=== PATIENT | female | born 2000 | race Caucasian/White ===

== ENCOUNTER 2023-03-26 12:06 | Emergency (ER) | payer MEDICAID, SELFPAY ==
[2023-03-26 12:26] VITALS: BP 134/86; PULSE 114; RESP 18; TEMP 36.6; O2SAT 99; BMI 36.4
[2023-03-26 12:54] LABS: Basophils % 0.3 %; Eosinophils # 0.1 10^3/uL (0.0-0.8); Eosinophils % 1.2 %; Hematocrit 37.2 % (36-47); Lymphocytes # 1.8 10^3/uL (0.8-4.8); Lymphocytes % 20.8 %; Mean Corpuscular HGB Conc 33.6 g/dL (30-55); Mean Corpuscular Volume 89.4 fl (85-98); Mean Platelet Volume 11.4 fL (7.4-10.4); Monocytes # 0.4 10^3/uL (0.2-0.9); Monocytes % 4.2 %; Neutrophils # 6.31 10^3/uL (1.8-7.7); Neutrophils % 72.8 %; Nucleated Red Blood Cells % 0 %; Platelet Count 270 10^3/cmm (157-399); Red Blood Count 4.16 10^6/uL (3.85-5.65); Red Cell Distribution Width 12.3 % (12.1-15.1); White Blood Count 8.66 10^3/uL (3.29-11.43)
[2023-03-26 13:34] LABS: Alanine Aminotransferase 9 U/L (0-33); Albumin Level 3.9 g/dL (3.5-5.2); Alkaline Phosphatase 73 U/L (35-105); Anion Gap 16.7 (5-19); Aspartate Amino Transferase 11 U/L (0-32); Blood Urea Nitrogen 6 mg/dL (6-20); Calcium 9.4 mg/dL (8.5-10.5); Carbon Dioxide 22 mmol/L (22-29); Chloride 103 mmol/L (98-107); Globulin 2.6 g/dL (1.3-4.6); Glomerular Filtration Rate 152.9 mL/min (90-130); Glucose 120 mg/dL (65-115); Osmolality Calculated 285 mOsm/kg (285-295); Potassium 3.7 mmol/L (3.5-5.1); Sodium 138 mmol/L (136-145); Total Bilirubin 0.3 mg/dL (0.15-1.2); Total Protein 6.5 g/dL (6.6-8.7)
--- NOTE | 2023-03-26 14:58 | US_ITS ---
WS: [id number] ULTRASOUND EARLY TECHNIQUE: Transabdominal sonography of the pelvis was performed. Followed by transvaginal sonography to better evaluate the uterus and ovaries. CLINICAL INFORMATION: vaginal bleeding LMP: 12/29/2022 Beta hCG: Unknown. COMPARISON: None. FINDINGS: Cervix is long and closed measuring 4.4 cm. UTERUS AND GESTATIONAL SAC Intrauterine gestations: Single intrauterine gestation with cardiac activity. pole measures 7.2 cm Estimated gestational age: 13w2d [place] rump length (CRL): 7.2 cm. heart motion: 153 BPM. Subchorionic hemorrhage: None. OVARIES Right ovary: Normal. Left ovary: Suspected LEFT corpus luteum cyst measuring 1.8 x 1.7 x 1.6 cm FREE FLUID None. IMPRESSION: 1. Single live intrauterine with cardiac activity. 2. Cervix is long and closed measuring 4.4 cm. 3. Suspected corpus luteum cyst LEFT ovary. Normal RIGHT ovary 4. Normal adnexa. 5. Estimated gestational age; 13w2d with estimated date of delivery 09/29/2023
--- NOTE | 2023-03-26 15:05 | W.ED.PREGNAN ---
HPI - General: Chief complaint: Vaginal Bleeding Stated complaint: 3month , vaginal bleeding,back pains Time Seen by Provider: 03/26/23 14:22 Source: patient History of Present Illness: 22-year-old female presents emergency room complaining of vaginal bleeding. She noticed pink on the tissue after she wiped she also has a little bit of blood in the urine. Began this morning. She has not had any bleeding since no active bleeding no dysuria urgency or frequency. She currently is approximately 12 to 13 weeks. Did not have any pelvic pain or cramping. MD Complaint: vaginal bleeding Onset (ago): hour(s) Vaginal bleeding: light Associated symptoms: Deny abdominal pain or dysuria Review of Systems Const: Denies: fever(s) or chills Card: Denies: chest pain Resp: Denies: dyspnea GI: Denies: abdominal pain : Denies: dysuria, urinary frequency or urinary urgency Musc: Denies: neck pain or back pain Skin/Breast: Denies: rash Physical Exam Const: COMMON NORMALS: no acute distress GENERAL APPEARANCE: cooperative and comfortable ORIENTATION/CONSCIOUSNESS: Yes awake, Yes oriented to person, Yes oriented to place and Yes oriented to time HENMT: COMMON NORMALS: normocephalic, atraumatic and hearing grossly normal bilaterally HEAD & SCALP: normocephalic and atraumatic Resp: COMMON NORMALS: normal respiratory effort, No retractions, No use of accessory muscles and clear to auscultation bilaterally AUSCULTATION: clear to auscultation bilaterally Cardio: COMMON NORMALS: regular rate, regular rhythm and No murmurs present (Cardio) RATE: regular rate RHYTHM: regular rhythm GI: COMMON NORMALS: Soft to palpation and No hepatosplenomegaly present AUSCULTATION: Yes normoactive bowel sounds PALPATION: Yes Soft to palpation, No Tenderness to palpation present (GI), No Guarding due to palpation present (GI) and Yes No hepatosplenomegaly present Extremity: COMMON NORMALS: normal to inspection, capillary refill normal, no clubbing, cyanosis or edema, no calf tenderness and no pedal edema Neuro: SENSORIUM/ORIENTATION: Yes oriented to person, Yes oriented to place and Yes oriented to time Skin: COMMON NORMALS: no rashes or lesions noted GENERAL SKIN EXAM: no rashes or lesions noted Course Vital Signs: Vital signs: Vital Signs Temperature 97.9 F 03/26/23 12:26 Pulse Rate 114 H 03/26/23 12:26 Respiratory Rate 18 03/26/23 12:26 Blood Pressure 134/86 03/26/23 12:26 Pulse Oximetry 99 03/26/23 12:26 Oxygen Delivery Me thod Room Air 03/26/23 12:26 MDM - OB/Uterine Contractions Medical Decision Making Labs and imaging reviewed. No active bleeding. Ultrasound normal patient not having a pelvic discomfort. Discharge patient home have her follow-up with her primary care or senior mobile web developer return if she has further problems. heart tones normal. Medical Records I reviewed the patient's medical records. Lab Data I reviewed the patient's lab results. 03/26/23 12:40 03/26/23 12:40 Laboratory Results WBC 8.66 10^3/uL (3.29-11.43) 03/26/23 12:40 RBC 4.16 10^6/uL (3.85-5.65) 03/26/23 12:40 Hgb 12.50 g/dL (11.27-16.99) 03/26/23 12:40 Hct 37.2 % (36-47) 03/26/23 12:40 MCV 89.4 fl (85-98) 03/26/23 12:40 MCH 30.0 pg (27-33) 03/26/23 12:40 MCHC 33.6 g/dL (30-55) 03/26/23 12:40 RDW 12.3 % (12.1-15.1) 03/26/23 12:40 Plt Count 270 10^3/cmm (157-399) 03/26/23 12:40 MPV 11.4 fL (7.4-10.4) H 03/26/23 12:40 Neut % (Auto) 72.8 % 03/26/23 12:40 Lymph % (Auto) 20.8 % 03/26/23 12:40 Kaufman % (Auto) 4.2 % 03/26/23 12:40 Eos % (Auto) 1.2 % 03/26/23 12:40 Baso % (Auto) 0.3 % 03/26/23 12:40 Neut # (Auto) 6.31 10^3/uL (1.8-7.7) 03/26/23 12:40 Lymph # (Auto) 1.8 10^3/uL (0.8-4.8) 03/26/23 12:40 Kaufman # (Auto) 0.4 10^3/uL (0.2-0.9) 03/26/23 12:40 Eos # (Auto) 0.1 10^3/uL (0.0-0.8) 03/26/23 12:40 Baso # (Auto) 0.0 10^3/uL (0.0-0.1) 03/26/23 12:40 Nucleated RBC % (auto) 0 % 03/26/23 12:40 Nucleated RBCs # 0.0 /100WBC 03/26/23 12:40 Sodium 138 mmol/L (136-145) 03/26/23 12:40 Potassium 3.7 mmol/L (3.5-5.1) 03/26/23 12:40 Chloride 103 mmol/L (98-107) 03/26/23 12:40 Carbon Dioxide 22 mmol/L (22-29) 03/26/23 12:40 Anion Gap 16.7 (5-19) 03/26/23 12:40 BUN 6 mg/dL (6-20) 03/26/23 12:40 Creatinine 0.5 mg/dL (0.5-0.9) 03/26/23 12:40 GFR Calculation 152.9 mL/min (90-130) H 03/26/23 12:40 Glucose 120 mg/dL (65-115) H 03/26/23 12:40 Calculated Osmolality 285 mOsm/kg (285-295) 03/26/23 12:40 Calcium 9.4 mg/dL (8.5-10.5) 03/26/23 12:40 Total Bilirubin 0.3 mg/dL (0.15-1.2) 03/26/23 12:40 AST 11 U/L (0-32) 03/26/23 12:40 ALT 9 U/L (0-33) 03/26/23 12:40 Alkaline Phosphatase 73 U/L (35-105) 03/26/23 12:40 Total Protein 6.5 g/dL (6.6-8.7) L 03/26/23 12:40 Albumin 3.9 g/dL (3.5-5.2) 03/26/23 12:40 Globulin 2.6 g/dL (1.3-4.6) 03/26/23 12:40 Ser , Semi-Qnt 55789.00 mIU/mL 03/26/23 12:40 Urine Color Yellow (Yellow) 03/26/23 14:36 Urine Appearance Sl hazy (CLEAR) A 03/26/23 14:36 Urine pH 7 (5-7) 03/26/23 14:36 Ur Specific [place] 1.015 (1.005-1.030) 03/26/23 14:36 Urine Protein Neg (Negative) 03/26/23 14:36 Urine Glucose (UA) Norm (Normal) 03/26/23 14:36 Urine Ketones 1+ (Negative) H 03/26/23 14:36 Urine Blood Neg (Negative) 03/26/23 14:36 Urine Nitrate Negative (Negative) 03/26/23 14:36 Urine Bilirubin Neg (Negative) 03/26/23 14:36 Urine Urobilinogen 1 mg/dL (Negative) H 03/26/23 14:36 Ur Leukocyte Esterase Negative (Negative) 03/26/23 14:36 Urine RBC 0-4 /hpf (0-2) H 03/26/23 14:36 Urine WBC 0-4 /hpf (0-5) H 03/26/23 14:36 Ur Squamous Epith Cells 0-4 /hpf (0-5) H 03/26/23 14:36 Amorphous Sediment 1+ /hpf 03/26/23 14:36 Urine Bacteria Trace /hpf (NONE) 03/26/23 14:36 Urine Mucus 1+ /hpf 03/26/23 14:36 C.trachomatis RNA (TMA) Not detected (NOT DETECTED) 03/26/23 16:05 Chlamydia/GC Comment See note 03/26/23 16:05 N.gonorrhoeae RNA (TMA) Not detected (NOT DETECTED) 03/26/23 16:05 All radiology interpretation(s) finalized by discharge Discharge Plan Discharge Patient Disposition: Home Clinical Impression: Vaginal bleeding, Second trimester Condition: Stable Prescriptions: No Action Lamictal 200 mg Tablet 200 mg PO QAM Gummies 400 mcg-35 mg- 25 mg-5 mg Tablet,Chewable 2 tab PO QAM Discharge Orders: Discharge ED (Routine); Ordered 03/26/23 Ordered By: Joseph Dutton Discharge Diet: Usual diet Discharge Activity: Increase activity as tolerated Patient Instructions: Opioid Safety, Pain Management Activity Restrictions/Additional Instructions: Thank you for choosing [facility] for your healthcare needs today. Please realize this is an emergency room and that we are providing you with a medical screening exam and this may not be complete and all inclusive of all the testing and or work up that you may need to determine your ailment or severity of your illness. It is very important that you follow up as instructed or that you return to the Emergency Department should you have concerns or if your condition changes or worsens in any way. You were seen today with a complaint of vaginal bleeding. On exam there is no evidence of acute vaginal bleeding. From your report of the first trimester ultrasound the second trimester ultrasound confirms the dating and did not show any evidence of subchorionic hemorrhage or any other complications. We did do cultures during the pelvic exam those of the resulted in a few days and you will be contacted if there are any positives. Urinalysis was normal. Case management will help make arrangements for you to establish with a senior mobile web developer in the area. Coding Level of Care Code ED Emergency Management Program Specialist for Alonso Trevino
[2023-03-26 15:15] LABS: Add Urine Microscopic? YES; Bilirubin Urine Neg (Negative); Blood Urine Neg (Negative); Glucose Urine UA Norm (Normal); Ketones Urine 1+ (Negative); Leukocyte Esterase Urine Negative (Negative); Nitrate Urine Negative (Negative); Protein Urine Neg (Negative); Specific Gravity, Urine 1.015 (1.005-1.030); Urine Appearance SL Hazy (CLEAR); Urine Color Yellow (Yellow); Urobilinogen Urine 1 mg/dL (Negative); pH Urine 7 (5-7)
[2023-03-26 15:20] LABS: Bacteria Urine TRACE /hpf; Mucus Urine 1+ /hpf; RBC Urine 0-4 /hpf (0-2); Squamous Epithelial Cell Urine 0-4 /hpf (0-5); WBC Urine 0-4 /hpf (0-5)
[2023-03-26 15:21] LABS: Add Urine Culture? No; Amorphous Sediment Urine 1+ /hpf
[2023-03-27 19:25] LABS: Chlamydia Trachomatis RNA TMA NOT DETECTED (NOT DETECTED); Neisseria Gonorrhoeae RNA, TMA NOT DETECTED (NOT DETECTED)
== END 2023-03-26 17:40 | disposition home or self-care (01) ==
PROVIDERS: Emergency Medicine; Emergency Provider Family Medicine
DX: O46.91 Antepartum hemorrhage, unspecified, first trimester (principal); Z3A.13 13 weeks gestation of pregnancy
CPT/HCPCS: 36415; 76801; 80053; 81001; 84702; 85025; 87210; 87491; 87591; 99284

== ENCOUNTER → 2023-04-16 14:04 | Outpatient (BNVA) | payer MEDICAID, SELFPAY | PROVIDERS: Visit Provider Nurse Practitioner Women's Health | DX: Z34.90 Encounter for supervision of normal pregnancy, unspecified, unspecified trimester (principal) | CPT/HCPCS: 80307; 81000; 84439; 84443; 84481; 85025; 86592; 86762; 86803; 86850; 86900; 87086; 87340; 87491; 87591; 87806; 88175 ==

== ENCOUNTER → 2023-05-14 14:23 | Outpatient (BNVA) | payer MEDICAID, SELFPAY | PROVIDERS: Visit Provider Obstetrics & Gynecology | DX: Z34.90 Encounter for supervision of normal pregnancy, unspecified, unspecified trimester (principal); Z3A.00 Weeks of gestation of pregnancy not specified | CPT/HCPCS: 76805 ==

== ENCOUNTER → 2023-05-29 14:53 | Outpatient (BNVA) | payer MEDICAID, SELFPAY | PROVIDERS: Visit Provider Obstetrics & Gynecology | DX: Z34.90 Encounter for supervision of normal pregnancy, unspecified, unspecified trimester (principal); Z3A.15 15 weeks gestation of pregnancy | CPT/HCPCS: 81000 ==

== ENCOUNTER → 2023-06-26 09:57 | Outpatient (BNVA) | payer MEDICAID, SELFPAY | PROVIDERS: Visit Provider Obstetrics & Gynecology | DX: Z34.92 Encounter for supervision of normal pregnancy, unspecified, second trimester (principal); Z3A.15 15 weeks gestation of pregnancy; Z98.891 History of uterine scar from previous surgery | CPT/HCPCS: 81000 ==

== ENCOUNTER → 2023-07-22 09:43 | Outpatient (BNVA) | payer MEDICAID, SELFPAY | PROVIDERS: Visit Provider Obstetrics & Gynecology | DX: Z34.92 Encounter for supervision of normal pregnancy, unspecified, second trimester (principal); Z3A.29 29 weeks gestation of pregnancy | CPT/HCPCS: 81000 ==

== ENCOUNTER 2023-07-28 02:12 | Outpatient (CLI) | payer MEDICAID, SELFPAY ==
[2023-07-28] VITALS (7 sets, daily range): BP systolic 103–128; BP diastolic 55–71; PULSE 90–108; RESP 16; TEMP 36.6; BMI 38.1
[2023-07-28 03:13] LABS: Add Urine Culture? Yes; Bacteria Urine 2+ /hpf; Bilirubin Urine Neg (Negative); Blood Urine Neg (Negative); Glucose Urine UA Norm (Normal); Ketones Urine Negative (Negative); Leukocyte Esterase Urine 2+ (Negative); Mucus Urine TRACE /hpf; Nitrate Urine Negative (Negative); Protein Urine Neg (Negative); RBC Urine 0-4 /hpf (0-2); Specific Gravity, Urine 1.005 (1.005-1.030); Urine Appearance Clear (CLEAR); Urine Color Yellow (Yellow); Urobilinogen Urine Neg (Negative); WBC Urine 25-40 /hpf (0-5); pH Urine 7 (5-7)
[2023-07-28] MEDS: oxyCODONE-APAP 5-325 mg Tablet 2 TAB PO (03:38)
[2023-07-28] MEDS: ceFAZolin 1,000 MG in sodium chloride 0.9% (plus) 50 ML 100 MG IV (03:39)
[2023-07-28] MEDS: lactated ringers 1,000 ML 125 ML IV (03:39)
== END 2023-07-28 05:16 | disposition home or self-care (01) ==
LOC: OPOB 02:13 → OBGYN 02:13
PROVIDERS: Visit Provider Obstetrics & Gynecology
DX: O26.899 Other specified pregnancy related conditions, unspecified trimester (principal); Z3A.00 Weeks of gestation of pregnancy not specified; M54.9 Dorsalgia, unspecified
CPT/HCPCS: 36415; 59025; 81001; 87086; 99211; J0690; J7120

== ENCOUNTER → 2023-07-29 08:27 | Outpatient (BNVA) | payer MEDICAID, SELFPAY | PROVIDERS: Visit Provider Obstetrics & Gynecology | DX: Z34.02 Encounter for supervision of normal first pregnancy, second trimester (principal); Z3A.15 15 weeks gestation of pregnancy | CPT/HCPCS: 82950; 84315 ==

== ENCOUNTER → 2023-08-12 08:10 | Outpatient (BNVA) | payer MEDICAID, SELFPAY | PROVIDERS: Visit Provider Obstetrics & Gynecology | DX: Z34.93 Encounter for supervision of normal pregnancy, unspecified, third trimester (principal); Z3A.32 32 weeks gestation of pregnancy | CPT/HCPCS: 81000 ==

== ENCOUNTER → 2023-08-26 14:43 | Outpatient (BNVA) | payer MEDICAID, SELFPAY | PROVIDERS: Visit Provider Nurse Practitioner Women's Health | DX: Z34.93 Encounter for supervision of normal pregnancy, unspecified, third trimester (principal); Z3A.34 34 weeks gestation of pregnancy; R87.619 Unspecified abnormal cytological findings in specimens from cervix uteri; K82.9 Disease of gallbladder, unspecified | CPT/HCPCS: 81000; 87086 ==

== ENCOUNTER 2023-08-29 10:11 | Outpatient (CLI) | payer MEDICAID, SELFPAY ==
--- NOTE | 2023-08-29 10:15 | USR_ITS ---
PROCEDURE INFORMATION: Exam: US Abdomen, Limited; Right Upper Quadrant Exam date and time: 08/29/2023 10:25 AM Age: 22 years old Clinical indication: Condition or disease; Gallbladder condition; Other: Disease of gallbladder, unspecified; Additional info: K82.9 - disease of gallbladder, unspecified TECHNIQUE: Imaging protocol: Real time ultrasound of the abdomen with image documentation. Limited exam focused on the right upper quadrant. COMPARISON: US OB >= 14 weeks fetus [id number] 14/05/2023 14:32 FINDINGS: Liver: Normal. No masses. Gallbladder: Normal. No gallstones. There is no gallbladder wall thickening. Biliary ducts: Normal. No stones. No dilation (3 mm). Pancreas: Visualized pancreas is unremarkable. Kidneys: There is moderate bilateral hydronephrosis. This hydronephrosis is potentially a normal physiologic finding in this female. US/US gall bladder [id number] IMPRESSION: 1. Moderate bilateral hydronephrosis, potentially a normal physiologic finding in this female 2. No sonographic evidence of hepatobiliary disease
== END 2023-08-29 10:12 | disposition home or self-care (01) ==
LOC: RAD 10:11
PROVIDERS: Visit Provider Nurse Practitioner Women's Health
DX: O26.613 Liver and biliary tract disorders in pregnancy, third trimester (principal); R73.09 Other abnormal glucose
CPT/HCPCS: 76705; 82951; 82952

== ENCOUNTER → 2023-09-09 08:20 | Outpatient (BNVA) | payer MEDICAID, SELFPAY | PROVIDERS: Visit Provider Obstetrics & Gynecology | DX: Z34.90 Encounter for supervision of normal pregnancy, unspecified, unspecified trimester (principal); Z3A.00 Weeks of gestation of pregnancy not specified | CPT/HCPCS: 81000; 87081 ==

== ENCOUNTER → 2023-09-16 08:20 | Outpatient (BNVA) | payer MEDICAID, SELFPAY | PROVIDERS: Visit Provider Obstetrics & Gynecology | DX: Z34.90 Encounter for supervision of normal pregnancy, unspecified, unspecified trimester (principal) | CPT/HCPCS: 81000 ==

== ENCOUNTER → 2023-09-24 09:20 | Outpatient (BNVA) | payer MEDICAID, SELFPAY | PROVIDERS: Visit Provider Obstetrics & Gynecology | DX: Z34.90 Encounter for supervision of normal pregnancy, unspecified, unspecified trimester (principal); Z3A.00 Weeks of gestation of pregnancy not specified | CPT/HCPCS: 81000 ==

== ENCOUNTER 2023-09-27 11:10 | Inpatient (IN) | payer MEDICAID, SELFPAY ==
[2023-09-27] VITALS (29 sets, daily range): BP systolic 106–151; BP diastolic 55–81; PULSE 55–87; RESP 16–17; TEMP 36.7; O2SAT 98–99; BMI 39.4
--- NOTE | 2023-09-27 08:00 | PM.OBGYHP ---
Providers/Chief Complaint Admitting Physician: Al Barrett MD Primary ARTILLERY SPECIALIST: Al Barrett MD Chief Complaint: epi consult HPI ARTILLERY SPECIALIST History of Present Illness 22 y.o. EDC October 04, 2023 At 39 w 0 d No complications No c/o + active movements h/o x one now admitted for repeat for delivery Medications/Allergies Home Medications Medication Instructions Recorded Confirmed Last Taken Type docosahexaenoic acid 200 mg 200 mg PO DAILY 08/26/23 09/24/23 Unknown History capsule ( DHA) Allergies Allergy/AdvReac Type Severity Reaction Status Date / Time escitalopram [From Lexapro] Allergy suicidal Verified 09/24/23 15:57 ideation PFSH ARTILLERY SPECIALIST PFSH: Family History Grandmother Breast cancer Diabetes Denies family history of Colon cancer Ovarian cancer Heart disease Hypertension Uterine cancer Thyroid disease Stroke History History History 2 Term 1 0 Miscarriages/Ectopic 0 Living Children 1 Care TEZ Calculator Estimated Delivery Date Method Current WG Current Estimate 10/04/23 LMP (Certain) 39w 0d Physical Exam Narrative: Weight 237 lbs; 5?5? Comfortable, awake, alert Lungs: clear Cor: RRR Abd: nontender FH 38 cm FHTs normal Ext: no edema Results Labs OB ([facility]): Blood Type O Positive 04/16/23 Antibody Screen Negative 04/16/23 Hct 34.0 % (36-47) L 04/16/23 Hgb 11.50 g/dL (11.27-16.99) 04/16/23 Rho(D) Type Rh positive 04/16/23 Plt Count 271 10^3/cmm (157-399) 04/16/23 Hep Bs Antigen Non-reactive (Nonreactive) 04/16/23 Hepatitis C Antibody Non-reactive (Nonreactive) 04/16/23 Rubella IgG Antibody 36.9 IU/mL (0.0-10.0) H 04/16/23 RPR Nonreactive (Nonreactive) 04/16/23 HIV 1&2 Ab & HIV 1 Ag Non-reactive (Non-Reactiv) 04/16/23 TSH 1.34 uIU/mL (0.27-4.20) 04/16/23 Free T4 0.97 ng/dL (0.82-1.77) 04/16/23 C.trachomatis RNA (TMA) Not detected (NOT DETECTED) 04/16/23 N.gonorrhoeae RNA (TMA) Not detected (NOT DETECTED) 04/16/23 Chlamydia/GC Comment See note 04/16/23 Cystic Fibrosis Screen Negative 04/16/23 Glucose 1 Hr 50 gm 148 mg/dL (85-140) H 07/29/23 Gest Glucose Tolerance mg/dL 08/27/23 Ser , Semi-Qnt 13930.00 mIU/mL 03/26/23 Urine Opiates Screen Negative ng/mL (Negative) 04/16/23 Ur Barbiturates Screen Negative ng/mL (Negative) 04/16/23 Ur Phencyclidine Scrn Negative ng/mL (Negative) 04/16/23 Ur Amphetamines Screen Negative ng/mL (Negative) 04/16/23 U Benzodiazepines Scrn Negative ng/mL (Negative) 04/16/23 Urine Cocaine Screen Negative ng/mL (Negative) 04/16/23 U Marijuana (THC) Screen Negative ng/mL (Negative) 04/16/23 Micro Urine Specimen 08/26/23 Pap Smear Interpret See note A 04/16/23 A&P Assessment and plan (1) : 39 w 0 d Qualifiers: Weeks of gestation: 15 weeks Qualified Code(s): Z3A.15 - 15 weeks gestation of (2) History of delivery: h/o x one patient wants RCS for delivery does not want trial of labor now admitted for repeat c-s procedure and risks explained to patient risks include, but not limited to, infection; bleeding; injury to internal organs, such as bladder, bowel; anesthesia; blood transfusions patient understands and wants to proceed Attestations Medical Necessity Statement*: patient at 39 w 0 d; admitted for repeat Coding Level of Care Code Acute Code for Chg Fwd Diagnoses 15 weeks gestation of Z3A.15 Weeks of gestation: 15 weeks History of delivery Z98.891 Time Spent (min) 30
[2023-09-27 12:04] LABS: Basophils % 0.5 %; Eosinophils % 0.6 %; Hematocrit 32.4 % (36-47); Lymphocytes # 1.7 10^3/uL (0.8-4.8); Lymphocytes % 26.1 %; Mean Corpuscular HGB Conc 32.1 g/dL (30-55); Mean Corpuscular Hemoglobin 28.6 pg (27-33); Mean Platelet Volume 13.9 fL (7.4-10.4); Monocytes # 0.4 10^3/uL (0.2-0.9); Monocytes % 6.2 %; Neutrophils # 4.21 10^3/uL (1.8-7.7); Neutrophils % 65.5 %; Nucleated Red Blood Cells % 0 %; Platelet Count 134 10^3/cmm (157-399); Red Blood Count 3.64 10^6/uL (3.85-5.65); Red Cell Distribution Width 13.2 % (12.1-15.1); White Blood Count 6.43 10^3/uL (3.29-11.43)
[2023-09-27] MEDS: lactated ringers 1,000 ML 999 ML IV (12:04)
--- NOTE | 2023-09-27 12:43 | W.PM.OPSUD ---
Surgery/Procedure H&P Update DATE OF PROCEDURE: September 27, 2023 DATE H&P PERFORMED: 09/27/23 H&P UPDATE INFORMATION: I have reviewed H&P completed within last 30 days, I have examined patient prior to procedure and No changes to prior documentation PRIMARY INDICATION FOR PROCEDURE: repeat PLANNED PROCEDURE: Operation Date: 09/27/23 13:20 Proposed Procedures p Section Repeat 32888, O34.219(Not Applicable) - Al Barrett MD
[2023-09-27] MEDS: citric acid-sodium citrate 30 mL UDC PO (12:54)
[2023-09-27] MEDS: metoclopramide 5 mg/mL SDV 2 mL 10 MG IVP (12:54)
[2023-09-27] MEDS: famotidine 20 mg/2 mL INJ IVP (12:54)
[2023-09-27] MEDS: methylergonovine 0.2 mg/mL INJ 1 mL 0.200000000000000011 MG IM (13:44)
--- NOTE | 2023-09-27 15:10 | P.OP_ITS ---
Operative Report Date of procedure: September 27, 2023 Pre-op diagnosis: 39 ? weeks gestation Previous x one For repeat Post-op diagnosis: same Post-op findings: Vigorous female infant Normal placenta and cord Normal uterus, tubes, and ovaries Procedure done: Repeat low-transverse Implants: none Specimens removed/disposition: placenta, discarded Surgeon: Al Barrett MD Anesthesia: Spinal Estimated blood loss (mL): 1,000 Complications: none Findings: Vigorous female Normal placenta and cord Normal uterus, tubes, and ovaries Condition: stable Disposition: floor Brief History: 22 y.o. with previous now scheduled for repeat for delivery Procedure: Informed consent signed. Patient was taken to the operating room, placed supine in the left lateral tilt position. Spinal anesthesia and a Johnston catheter were already placed. The abdomen was prepped and draped in the usual sterile fashion. A Pfannenstiel incision was made over an old scar and carried down through skin and subcutaneous tissue and fascia. The fascial incision was extended laterally with Molina scissors. The fascia was from the underlying rectus muscles. The rectus muscles were split in the midline. The peritoneum was entered bluntly avoiding underlying organs. A bladder flap was created. A low transverse uterine incision was made and extended laterally bluntly avoiding the uterine vessels. Clear amniotic fluid was seen. The baby was delivered in cephalic presentation atraumatically. The baby was suctioned. The cord was clamped and cut and the baby was handed to an awaiting chief dispatcher service. Cord blood was obtained. The placenta was manually removed intact. The uterus was exteriorized. The uterine cavity was bluntly curetted with wet laps. The uterine incision was then closed with a continuous interlocking stitch of O chromic. Adequate hemostasis was seen. No bleeding was seen. The uterine incision was again inspected and found to have good hemostasis. The uterus was returned into the abdominal cavity. The fascia was then closed with a continuous stitch of O-Vicryl. Additional interrupted stitches of O-Vicryl were used for fascial closure. The subcutaneous tissue was irrigated and inspected for hemostasis. The skin was then reapproximated using Insorb evaristo. Postoperative condition stable Disposition to recovery room Estimated blood loss 1000 cc, no replacement Sponge, needle, and instrument counts were correct x two There were no complications
[2023-09-27] MEDS: ketorolac 30 mg/mL INJ IVP (19:59)
[2023-09-27] MEDS: dextrose 5%-lactated ringers 1,000 ML 125 ML IV (20:00)
[2023-09-27] MEDS: docusate sodium 100 mg Capsule PO (20:02)
[2023-09-28 01:45] VITALS: BP 122/59; PULSE 75
[2023-09-28 01:57] LABS: Hematocrit 30.9 % (36-47); Mean Corpuscular HGB Conc 32.4 g/dL (30-55); Mean Corpuscular Hemoglobin 28.7 pg (27-33); Mean Corpuscular Volume 88.5 fl (85-98); Mean Platelet Volume 14.1 fL (7.4-10.4); Platelet Count 142 10^3/cmm (157-399); Red Blood Count 3.49 10^6/uL (3.85-5.65); Red Cell Distribution Width 13.2 % (12.1-15.1); White Blood Count 10.22 10^3/uL (3.29-11.43)
[2023-09-28] MEDS: ketorolac 30 mg/mL INJ IVP ×2 (02:50→08:13)
[2023-09-28 04:14] VITALS: BP 114/61; PULSE 77
[2023-09-28] MEDS: dextrose 5%-lactated ringers 1,000 ML 125 ML IV (05:42)
[2023-09-28] MEDS: PRENATAL VIT NO.130/IRON/FOLIC 1 EACH TABLET PO (08:13)
[2023-09-28] MEDS: ferrous sulfate EC 325 mg Tablet PO (08:13)
[2023-09-28] MEDS: docusate sodium 100 mg Capsule PO ×2 (08:13→21:11)
[2023-09-28 09:24] VITALS: BP 112/68; PULSE 73; RESP 17; TEMP 36.7
--- NOTE | 2023-09-28 12:35 | P.PN_ITS ---
MOBILE ENGINEER Subjective 2 Subjective: Interval history: c/o mild incisional pain, relieved with pain meds no bleeding, nausea, vomiting tolerating PO well caring for infant without any difficulties Labor: Amniotic Membrane Status: Intact Monitor Mode: External C ontraction Pattern: Irregular Vitals/I&O/Wt Last Vital Signs Temp 98.1 F 09/28/23 09:24 Pulse 84 09/28/23 21:13 Resp 17 09/28/23 09:24 BP 122/68 09/28/23 21:13 Pulse Ox 98 09/27/23 14:55 O2 Del Method Room Air 09/28/23 09:24 09/28/23 09/28/23 09/29/23 14:59 22:59 06:59 Output Total 550 / 550 Balance -550 / -550 Weight last 48 hrs Weight 237 lb Physical Exam 2 Narrative: afebrile, VS normal comfortable, awake, alert Lungs: clear Cor: RRR Abd: soft, nondistended, nontender fundus firm wound clean and dry Ext: no edema Urinary Catheter Management: Johnston: Cath Placed During This Visit: yes, but has since been removed by the nurse Reason for Continuing Indwelling Catheter: Decision to DC Catheter Urinary Catheter Date of Insertion: 09/27/23 Urinary Catheter Time of Insertion: 13:10 Date Urinary Catheter Removed: 09/28/23 Time Urinary Catheter Discontinued: 08:30 Data 09/28/23 01:50 A&P Assessment and plan (1) S/P repeat low transverse : POD #1 doing well continue postop care ambulate Attestations 2 Medical Necessity Statement*: patient s/p repeat , for postop care Coding Level of Care Code Acute Code for Chg Fwd Diagnoses S/P repeat low transverse Z98.891 Time Spent (min) 20
[2023-09-28] MEDS: HYDROcodone-acetaminophen 5-325 mg Tablet PO ×3 (13:19→21:11)
[2023-09-28] MEDS: simethicone 80 mg Chew PO (15:39)
[2023-09-28 17:16] VITALS: BP 117/68; PULSE 77
[2023-09-28] MEDS: ibuprofen 800 mg tablet PO (21:11)
[2023-09-28 21:13] VITALS: BP 122/68; PULSE 84; RESP 17; TEMP 36.7
[2023-09-29] MEDS: HYDROcodone-acetaminophen 5-325 mg Tablet PO ×3 (01:22→10:23)
[2023-09-29 03:49] VITALS: BP 121/67; PULSE 80
--- NOTE | 2023-09-29 09:10 | P.PN_ITS ---
PHYSICS FACULTY MEMBER Subjective 2 Subjective: Interval history: no c/o eating, voiding, ambulating well no pain, bleeding wants to go home without any difficulties Labor: Amniotic Membrane Status: Intact Monitor Mode: External C ontraction Pattern: Irregular Vitals/I&O/Wt Last Vital Signs Temp 98.0 F 09/29/23 10:11 Pulse 80 09/29/23 10:11 Resp 17 09/28/23 21:13 BP 118/68 09/29/23 10:11 Pulse Ox 98 09/27/23 14:55 O2 Del Method Room Air 09/28/23 09:24 Physical Exam 2 Narrative: comfortable afebrile, VS normal Abd: soft, nontender wound clean and dry Ext: normal Urinary Catheter Management: Johnston: Cath Placed During This Visit: yes, but has since been removed by the nurse Reason for Continuing Indwelling Catheter: Decision to DC Catheter Urinary Catheter Date of Insertion: 09/27/23 Urinary Catheter Time of Insertion: 13:10 Date Urinary Catheter Removed: 09/28/23 Time Urinary Catheter Discontinued: 08:30 Data 09/28/23 01:50 A&P Assessment and plan (1) S/P repeat low transverse : POD #2 RCS doing well discharge home today instructions and precautions given call/return if fever, chills, nausea, vomiting, headaches, abdominal pain, bleeding, inability to void, swelling, leg pain; feelings of depression or mood changes; wound redness, swelling, or discharge f/u in 1 week or PRN Attestations 2 Medical Necessity Statement*: patient s/p repeat , plan to discharge to home today Coding Level of Care Code Acute Code for Chg Fwd Diagnoses S/P repeat low transverse Z98.891 Time Spent (min) 20
--- NOTE | 2023-09-29 09:20 | P.DS_ITS ---
Discharge Providers ENTRY LEVEL INSTALLATION TECHNICIAN Date of Admission: 09/27/23 11:10 Date of Discharge: 09/29/23 Attending Provider at Admission: lA Barrett MD Attending Provider at Discharge: Al Barrett MD Consults: none Primary ENTRY LEVEL INSTALLATION TECHNICIAN: Al Barrett MD Diagnoses at Discharge Discharge Diagnosis (1) S/P repeat low transverse : Details from hospital stay: patient admitted for repeat at term underwent repeat low-transverse without any complications did well postoperatively patient was discharged to home on the second postoperative day Status: Acute Reason for Visit Reason for Visit: epi consult Brief History: 22 y.o. h/o previous admitted at 39 w 4 d for repeat Hospital Course Hospital Course patient admitted for repeat at term underwent repeat low-transverse without any complications did well postoperatively patient was discharged to home on the second postoperative day Information Peripartum Data: Delivery Method: complications: none Physical Exam Narrative: comfortable afebrile, VS normal Abd: soft, nontender wound clean and dry Ext: normal Urinary Catheter Management: Johnston: Cath Placed During This Visit: yes, but has since been removed by the nurse Reason for Continuing Indwelling Catheter: Decision to DC Catheter Urinary Catheter Date of Insertion: 09/27/23 Urinary Catheter Time of Insertion: 13:10 Date Urinary Catheter Removed: 09/28/23 Time Urinary Catheter Discontinued: 08:30 History History History 2 Term 1 0 Miscarriages/Ectopic 0 Living Children 1 Discharge Data Studies Completed and Pending Laboratory Results WBC 10.22 10^3/uL (3.29-11.43) 09/28/23 01:50 RBC 3.49 10^6/uL (3.85-5.65) L 09/28/23 01:50 Hgb 10.00 g/dL (11.27-16.99) L 09/28/23 01:50 Hct 30.9 % (36-47) L 09/28/23 01:50 MCV 88.5 fl (85-98) 09/28/23 01:50 MCH 28.7 pg (27-33) 09/28/23 01:50 MCHC 32.4 g/dL (30-55) 09/28/23 01:50 RDW 13.2 % (12.1-15.1) 09/28/23 01:50 Plt Count 142 10^3/cmm (157-399) L 09/28/23 01:50 MPV 14.1 fL (7.4-10.4) H 09/28/23 01:50 Neut % (Auto) 65.5 % 09/27/23 11:30 Lymph % (Auto) 26.1 % 09/27/23 11:30 [place] % (Auto) 6.2 % 09/27/23 11:30 Eos % (Auto) 0.6 % 09/27/23 11:30 Baso % (Auto) 0.5 % 09/27/23 11:30 Neut # (Auto) 4.21 10^3/uL (1.8-7.7) 09/27/23 11:30 Lymph # (Auto) 1.7 10^3/uL (0.8-4.8) 09/27/23 11:30 [place] # (Auto) 0.4 10^3/uL (0.2-0.9) 09/27/23 11:30 Eos # (Auto) 0.0 10^3/uL (0.0-0.8) 09/27/23 11:30 Baso # (Auto) 0.0 10^3/uL (0.0-0.1) 09/27/23 11:30 Nucleated RBC % (auto) 0 % 09/27/23 11:30 Nucleated RBCs # 0.0 /100WBC 09/27/23 11:30 Blood Type O Positive 09/27/23 11:30 Rho(D) Type Rh positive 09/27/23 11:30 Antibody Screen Negative 09/27/23 11:30 Procedures Performed repeat low-transverse Vitals Last Vital Signs Temp 98.0 F 09/29/23 10:11 Pulse 80 09/29/23 10:11 Resp 17 09/28/23 21:13 BP 118/68 09/29/23 10:11 Pulse Ox 98 09/27/23 14:55 O2 Del Method Room Air 09/28/23 09:24 Results Labs OB ([facility]): Blood Type O Positive 09/27/23 Antibody Screen Negative 09/27/23 Hct 30.9 % (36-47) L 09/28/23 Hgb 10.00 g/dL (11.27-16.99) L 09/28/23 Rho(D) Type Rh positive 09/27/23 Plt Count 142 10^3/cmm (157-399) L 09/28/23 Hep Bs Antigen Non-reactive (Nonreactive) 04/16/23 Hepatitis C Antibody Non-reactive (Nonreactive) 04/16/23 Rubella IgG Antibody 36.9 IU/mL (0.0-10.0) H 04/16/23 RPR Nonreactive (Nonreactive) 04/16/23 HIV 1&2 Ab & HIV 1 Ag Non-reactive (Non-Reactiv) 04/16/23 TSH 1.34 uIU/mL (0.27-4.20) 04/16/23 Free T4 0.97 ng/dL (0.82-1.77) 04/16/23 C.trachomatis RNA (TMA) Not detected (NOT DETECTED) N.gonorrhoeae RNA (TMA) Not detected (NOT DETECTED) Chlamydia/GC Comment See note 04/16/23 Cystic Fibrosis Screen Negative 04/16/23 Glucose 1 Hr 50 gm 148 mg/dL (85-140) H 07/29/23 Gest Glucose Tolerance mg/dL 08/27/23 Ser , Semi-Qnt 91889.00 mIU/mL 03/26/23 Urine Opiates Screen Negative ng/mL (Negative) 04/16/23 Ur Barbiturates Screen Negative ng/mL (Negative) 04/16/23 Ur Phencyclidine Scrn Negative ng/mL (Negative) 04/16/23 Ur Amphetamines Screen Negative ng/mL (Negative) 04/16/23 U Benzodiazepines Scrn Negative ng/mL (Negative) 04/16/23 Urine Cocaine Screen Negative ng/mL (Negative) 04/16/23 U Marijuana (THC) Screen Negative ng/mL (Negative) 04/16/23 Micro Urine Specimen 08/26/23 Pap Smear Interpret See note A 04/16/23 Discharge Plan Discharge Patient Disposition: Home Condition: Stable Prescriptions: New Percocet 10-325 mg tablet 1 tab PO BID PRN (Reason: pain) Qty: 20 0RF ferrous sulfate 325 mg (65 mg iron) tablet 325 mg PO BID Qty: 60 3RF Continued DHA 200 mg capsule 200 mg PO DAILY Discharge Orders: Discharge Order (Routine); Ordered 09/29/23 Ordered By: Al Barrett Discharge Diet: Usual diet Discharge Activity: Increase activity as tolerated Patient Instructions: Depression (DC), Bleeding (DC), Preeclampsia and Eclampsia After Delivery (GEN), Hemorrhage (GEN), OB C, OB Discharge Report, OB Food/Drug Interaction Guide, Opioid Safety, OB Home Care, OB Proud Parent Packet Discharge Attestations ENTRY LEVEL INSTALLATION TECHNICIAN Time Spent in Discharge Care*: less than 30 min Coding Level of Care Code Acute Code for Chg Fwd Diagnoses S/P repeat low transverse Z98.891 Time Spent (min) 20
[2023-09-29 10:11] VITALS: BP 118/68; PULSE 80; TEMP 36.7
[2023-09-29] MEDS: docusate sodium 100 mg Capsule PO (10:23)
[2023-09-29] MEDS: ibuprofen 800 mg tablet PO (10:23)
[2023-09-29] MEDS: PRENATAL VIT NO.130/IRON/FOLIC 1 EACH TABLET PO (10:23)
[2023-09-29] MEDS: ferrous sulfate EC 325 mg Tablet PO (10:24)
== END 2023-09-29 10:59 | disposition home or self-care (01) | DRG 788 ==
PROVIDERS: Admitting Provider Obstetrics & Gynecology; Visit Provider Obstetrics & Gynecology
PROC: 10D00Z1 Extraction of Products of Conception, Low, Open Approach (ICD-10-PCS; CPT 59514; principal; 2023-09-27 13:00)
DX: O34.211 Maternal care for low transverse scar from previous cesarean delivery (principal); N85.8 Other specified noninflammatory disorders of uterus; Z3A.39 39 weeks gestation of pregnancy; Z37.0 Single live birth
CPT/HCPCS: 36415; 51702; 59025; 59409; 85025; 85027; 86850; 86900; 96372; 96374; 96376; J1200; J1885; J2210; J2274; J2765; J3010; J3490; J7120; J7121

== ENCOUNTER 2024-06-07 13:41 | Emergency (ER) | payer MEDICAID, SELFPAY ==
[2024-06-07 14:35] VITALS: BP 103/73; PULSE 124; RESP 17; TEMP 38.6; O2SAT 96; BMI 38.2
--- NOTE | 2024-06-07 14:55 | XRR_ITS ---
PROCEDURE INFORMATION: Exam: XR Chest Exam date and time: 06/07/2024 4:03 PM Age: 23 years old Clinical indication: Cough and dyspnea; Additional info: Dyspnea/cough TECHNIQUE: Imaging protocol: Radiologic exam of the chest. Views: 1 view. COMPARISON: No relevant prior studies available. FINDINGS: Lungs: There are some calcified perihilar densities which may represent calcified lymph nodes. No lobar consolidation. Pleural spaces: Unremarkable. No pleural effusion. No pneumothorax. Heart/Mediastinum: No cardiomegaly. Bones/joints: Unremarkable. XR/XR chest 1V portable [id number] IMPRESSION: As above.
--- NOTE | 2024-06-07 15:05 | PC.NURSE ---
Significant other informed me that the patient was needing to be seen in addition to their child. PA informed.
--- NOTE | 2024-06-07 15:53 | PC.NURSE ---
Physician with patient at this time.
[2024-06-07] MEDS: lidocaine 2% viscous 15 mL UDC TOPICAL (16:24)
[2024-06-07 16:27] LABS: Rapid Strep A Test Negative (Negative)
--- NOTE | 2024-06-07 16:28 | ED_ITS ---
HPI - Fever General: Chief Complaint: Fever Stated Complaint: fever/cough Time Seen by Provider: 06/07/24 15:35 Source: patient Mode of arrival: ambulatory Limitations: no limitations History of Present Illness: Patient is a 23-year-old female that presents to the emergency department with fever, cough, sore throat that has been going on for the past 4 days. She states many members of the family have been sick. She denies any nausea or vomiting. She states she did take some ibuprofen yesterday but not today because her throat has been hurting to swallow. She denies any known exposure to influenza, COVID or strep throat but states she is unsure what she has been exposed to at work. She denies any abdominal pain. Patient denies and states she just got off her period. She presents to the emergency department for further evaluation and treatment. MD elicited complaint: fever and other (Cough, sore throat) Associated symptoms: Reports headache(s) (Intermittent) and nasal congestion; Deny abdominal pain, flank pain, chest pain, dysuria, nausea or vomiting Related Data Previous Rx's ?Medication ?Instructions ?Recorded lidocaine HCl 2 % mucosal solution 15 ml mucous membra ne Q4H PRN pain 06/07/24 (Lidocaine Viscous) #100 mL Allergies Allergy/AdvReac Type Severity Reaction Status Date / Time escitalopram (From Lexapro) Allergy suicidal Verified 04/28/24 08:57 ideation Review of Systems Const: Reports: fever(s) Eyes: Denies: eye redness ENMT: Reports: throat pain, odynophagia and nasal congestion; Denies: swelling of lips/tongue Card: Denies: chest pain Resp: Reports: non-productive cough GI: Denies: abdominal pain, nausea or vomiting : Denies: flank pain or dysuria Musc: Reports: neck pain (Mild right-sided neck pain, myalgias); Denies: extremity swelling Skin/Breast: Denies: rash or pruritus Neuro: Reports: headache(s) (Intermittent) Psych: Denies: anxiety Endo: Denies: polyuria Von/Lymph: Denies: petechiae All/Imm: Denies: urticaria or throat swelling PFSH ED PFSH: Medical History delivery delivered Obesity (BMI 35.0-39.9 without comorbidity) Surgical History Hx of tonsillectomy S/P repeat low transverse History of delivery Family History Grandmother Breast cancer Diabetes Denies family history of Colon cancer Ovarian cancer Heart disease Hypertension Uterine cancer Thyroid disease Stroke Social History Smoking and tobacco/nicotine status: former use of tobacco/nicotine Alcohol intake: former Substance/Drug Use: former Former substance use details: alternative products Physical Exam Const: COMMON NORMALS: no acute distress EXAM LIMITATIONS: no altered mental status and no behavioral limitations ORIENTATION/CONSCIOUSNESS: Yes awake; not confused HENMT: COMMON NORMALS: normocephalic, atraumatic, EAC's normal and TM's normal bilaterally HEAD & SCALP: normocephalic and atraumatic EXTERNAL AUDITORY CANAL: EAC's normal TYMPANIC MEMBRANE: TM's normal bilaterally MOUTH: Abnormal oral and palatal mucosa present (Mucous membranes appear somewhat dry) other; no drooling and no muffled voice THROAT: other (Pharyngeal erythema.); no peritonsillar mass Neck/C-Spine: COMMON NORMALS: full ROM and no meningeal signs GENERAL: Yes lymphadenopathy Lymphadenopathy location: anterior cervical and Yes other (Pharyngeal erythema) Cardio: COMMON NORMALS: regular rhythm RATE: tachycardic RHYTHM: regular rhythm GI: COMMON NORMALS: Normal to inspection, nondistended, normoactive bowel sounds present and non-tender : BLADDER/KIDNEY EXAM: No CVA tenderness Back/Pelvis: COMMON NORMALS: no thoracic nor lumbar tenderness GENERAL BACK: No CVA tenderness Extremity: COMMON NORMALS: full ROM, no calf tenderness and no pedal edema Neuro: MENINGEAL SIGNS: Yes no meningeal signs Psych: COMMON NORMALS: cooperative and speech normal ATTITUDE: Yes calm SPEECH: Yes normal speech Skin: COMMON NORMALS: no rashes or lesions noted and no petechiae GENERAL SKIN EXAM: no rashes or lesions noted Course Vital Signs: Vital signs: Vital Signs Temperature 101.5 F H 06/07/24 14:35 Pulse Rate 124 H 06/07/24 14:35 Respiratory Rate 17 06/07/24 14:35 Blood Pressure 103/73 06/07/24 14:35 Pulse Oximetry 96 06/07/24 14:35 Oxygen Delivery Me thod Room Air 06/07/24 14:35 MDM - Fever Medical Decision Making Patient was advised of the exam, lab and imaging findings. There is no acute findings on her chest x-ray. Patient was febrile here but had a severe sore throat. She states the viscous lidocaine did help with the throat pain and we will give her some Tylenol here to see if that will bring the fever down. Patient did test positive for influenza A but since her symptoms been going on for 4 days she is outside of treatment window for Tamiflu. She does have pharyngitis but tested negative for strep. Throat culture is pending. I recommended that she use Tylenol/ibuprofen as directed for fever and pain, viscous lidocaine to help with the throat pain and follow-up with her doctor for further evaluation and treatment. I also advised that she not go back to work until Saturday, if she is fever free for 24 hours prior to return. The patient was advised to return to the emergency department with any worsening symptoms and follow-up with her primary care provider in 1 week for recheck. The patient expressed understanding. Medical Records I reviewed the patient's medical records. Lab Data I reviewed the patient's lab results. Radiology Impressions Chest X-Ray 06/07/24 14:55 IMPRESSION: As above. Laboratory Results Coronavirus (PCR) Negative (Negative) 06/07/24 16:07 Influenza A (PCR) Positive (Negative) 06/07/24 16:07 Influenza Type B (PCR) Negative (Negative) 06/07/24 16:07 RSV (PCR) Negative (Negative) 06/07/24 16:07 Group A Strep Rapid Negative (Negative) 06/07/24 16:07 All radiology interpretation(s) finalized by discharge ED provider radiology interpretation(s): XRay Report Signed PROCEDURE INFORMATION: Exam: XR Chest Exam date and time: 06/07/2024 4:03 PM Age: 23 years old Clinical indication: Cough and dyspnea; Additional info: Dyspnea/cough TECHNIQUE: Imaging protocol: Radiologic exam of the chest. Views: 1 view. COMPARISON: No relevant prior studies available. FINDINGS: Lungs: There are some calcified perihilar densities which may represent calcified lymph nodes. No lobar consolidation. Pleural spaces: Unremarkable. No pleural effusion. No pneumothorax. Heart/Mediastinum: No cardiomegaly. Bones/joints: Unremarkable. XR/XR chest 1V portable [id number] IMPRESSION: As above. Critical Care Time Critical Care Time: Critical Care Time: No Discharge Plan Discharge Patient Disposition: Home Clinical Impression: Influenza A Acute pharyngitis Qualifiers: Pharyngitis/tonsillitis etiology: unspecified etiology Qualified Code(s): J02.9 - Acute pharyngitis, unspecified Cough Qualifiers: Cough type: acute Qualified Code(s): R05.1 - Acute cough Condition: Stable Prescriptions: New lidocaine HCl [Lidocaine Viscous] 2 % solution 15 ml mucous membrane Q4H PRN (Reason: pain) Qty: 100 0RF Discharge Orders: Discharge ED (Routine); Ordered 06/07/24 Ordered By: Blair Sewell Referrals: González Panchal MD [Primary Care Provider] - Discharge Diet: Advance as tolerated and Full LIquid Patient Instructions: Opioid Safety, Pain Management, Influenza (ED), Pharyngitis (ED) Activity Restrictions/Additional Instructions: Take medications as directed. Your prescription was sent electronically to your preferred pharmacy. [id number] Tylenol or ibuprofen as directed for fever and/or bodyaches. Rest, increase fluids. Follow-up with your doctor in 1 week for recheck. No work until fever free for 24 hours. Return to the emergency department with any worsening symptoms. Stand Alone Forms: Work/School Release Print Language: Gabonese Coding Level of Care Code ED Quality Review Specialist for Alonso Trevino
--- NOTE | 2024-06-07 16:42 | PC.NURSE ---
Orders were received to hold tylenol at this time.
[2024-06-07 17:01] LABS: Covid PCR NEGATIVE (Negative); Influenza A POSITIVE (Negative); Influenza B NEGATIVE (Negative); Respiratory Syncytial Virus Ce NEGATIVE (Negative)
[2024-06-07] MEDS: acetaminophen 325 mg Tablet 650 MG PO (17:25)
[2024-06-07 17:37] VITALS: BP 93/69; PULSE 106; RESP 16; TEMP 37.9; O2SAT 98
== END 2024-06-07 17:38 | disposition home or self-care (01) ==
PROVIDERS: Family Medicine; Emergency Provider Physician Assistant; PCP Family Medicine
DX: J10.1 Influenza due to other identified influenza virus with other respiratory manifestations (principal); R05.9 Cough, unspecified; Z11.52 Encounter for screening for COVID-19; Z87.891 Personal history of nicotine dependence
CPT/HCPCS: 12345; 71045; 87081; 87637; 87880; 99284

== ENCOUNTER 2024-07-21 16:46 | Outpatient (CLI) | payer MEDICAID, SELFPAY ==
[2024-07-21 17:07] LABS: Basophils % 0.4 %; Eosinophils # 0.2 10^3/uL (0.0-0.8); Eosinophils % 1.8 %; Hematocrit 38.8 % (36-47); Lymphocytes # 2.8 10^3/uL (0.8-4.8); Lymphocytes % 27.1 %; Mean Corpuscular HGB Conc 33.2 g/dL (30-55); Mean Corpuscular Hemoglobin 29.2 pg (27-33); Mean Corpuscular Volume 87.8 fl (85-98); Mean Platelet Volume 11.3 fL (7.4-10.4); Monocytes # 0.5 10^3/uL (0.2-0.9); Monocytes % 5.1 %; Neutrophils # 6.69 10^3/uL (1.8-7.7); Nucleated Red Blood Cells % 0 %; Platelet Count 296 10^3/cmm (157-399); Red Blood Count 4.42 10^6/uL (3.85-5.65); Red Cell Distribution Width 12.9 % (12.1-15.1); White Blood Count 10.28 10^3/uL (3.29-11.43)
[2024-07-21 17:51] LABS: Alanine Aminotransferase 13 U/L (0-33); Albumin Level 4.5 g/dL (3.5-5.2); Alkaline Phosphatase 91 U/L (35-105); Anion Gap 15.9 (5-19); Aspartate Amino Transferase 14 U/L (0-32); Blood Urea Nitrogen 16 mg/dL (6-20); Calcium 9.4 mg/dL (8.5-10.5); Carbon Dioxide 24 mmol/L (22-29); Chloride 104 mmol/L (98-107); Globulin 2.7 g/dL (1.3-4.6); Glomerular Filtration Rate 122.8 mL/min (90-130); Glucose 102 mg/dL (65-115); Osmolality Calculated 291 mOsm/kg (285-295); Potassium 3.9 mmol/L (3.5-5.1); Sodium 140 mmol/L (136-145); Thyroid Stimulating Hormone 2.55 uIU/mL (0.27-4.20); Total Bilirubin 0.2 mg/dL (0.15-1.2); Total Protein 7.2 g/dL (6.6-8.7)
[2024-07-21 21:52] LABS: Estmated Average Glucose 103; Hemoglobin A1C 5.2 % (4.0-6.0)
[2024-07-21 23:00] LABS: Free T4 Free Thyroxine 0.92 ng/dL (0.82-1.77)
== END 2024-07-21 16:47 | disposition home or self-care (01) ==
LOC: LAB 16:49
PROVIDERS: PCP Family Medicine; Visit Provider Family Medicine
DX: E66.9 Obesity, unspecified (principal)
CPT/HCPCS: 80053; 83036; 84439; 84443; 85025

== ENCOUNTER 2024-09-09 16:53 | Outpatient (CLI) | payer MEDICAID, SELFPAY ==
--- NOTE | 2024-09-09 17:06 | XRR_ITS ---
PROCEDURE INFORMATION: Exam: XR Abdomen Exam date and time: 09/09/2024 5:09 PM Age: 23 years old Clinical indication: Condition or disease; Kidney or ureter condition; Calculus (stone) in kidney; Looking for kidney stones since flank pain on right side for 1 yr, HX of stones; Additional info: Nephrolithiasis TECHNIQUE: Imaging protocol: Radiologic exam of the abdomen. Views: Frontal supine view of the abdomen. 1 View. COMPARISON: US gall bladder [id number] 08/29/2023 10:25 AM FINDINGS: Gastrointestinal tract: Normal. No bowel dilation. Bones/joints: Unremarkable. Other findings: No calculus overlying the kidneys or expected location of the bilateral ureters. XR/XR KUB [id number] IMPRESSION: No acute findings.
== END 2024-09-09 16:54 | disposition home or self-care (01) ==
LOC: RAD 16:56
PROVIDERS: PCP Family Medicine; Visit Provider Nurse Practitioner Family
DX: N20.0 Calculus of kidney (principal)
CPT/HCPCS: 74018

== ENCOUNTER 2025-04-16 22:08 | Emergency (ER) | payer MEDICAID, SELFPAY ==
[2025-04-16 22:11] VITALS: BP 137/92; PULSE 98; RESP 20; TEMP 36.7; O2SAT 96; BMI 40.5
--- OUTSIDE RECORDS SUMMARY | 2025-04-16 22:13 | XMS_ITS | Patient Health Record ---
Author Organization [facility] Address [address] [place] [address] Care Team Providers Care Personalized Living Manager Nurse Name Role Phone Abdulkadir SANCHEZ, González Primary Care Provider Unavailab DARLIN Abarca Unavailable [phone] PRIYA GRAFF Unavailable [phone] Allergies Allergen (clinical drug ingredient) Drug/Non Drug Allergy documented on EMR Reaction Allergy Type Onset Date Status escitalopram Lexapro Unknown Drug Allergy Acti ve Results Component Value Reference Range Notes Urinalysis, Routine Reviewed date:09/10/2024 01:51:55 PM Interpretation: Performing Lab: Notes/Report: Urine-Color yellow Appearance slightly cloudy Glucose - Bilirubin - Ketones - Specific [place] 1.015 Occult Blood - pH 6.5 Urine Protein - Urobilinogen,Semi-Qn - Nitrite, Urine - WBC Esterase trace UBASE - Urinary Tract Infect ion (HTRx) Reviewed date:09/11/2024 10:41:42 AM Interpretation: Performing Lab:, [facility], [facility], [place], Phone - [phone], Director - [id number] Notes/Report: Real-Time polymerase chain reaction (TaqMan qPCR) was utilized for detection for all tested organisms and resistance genes. Initiation of antimicrobial therapy prior to testing may affect results and can lead to the detection of non-living microorganisms. Detection of microbes must be correlated with current/recent antibiotic usage and patient signs and symptoms. Microbial sensitivity testing is not performed at this lab. Travel Consultant to CFU/mL equivalent thresholds were established based on studies using known CFU/mL urine specimens performed at [facility] in [place], [place]. [facility] (Jolene Nixon, [facility] [place] [address]; CLIA# [id number]; Hair Worker Hallie Muro, PhD, [facility])). This test was developed, and its performance characteristics determined by [facility]. It has not been cleared or approved by the FDA. However, such approval/clearance is not required, as the laboratory is regulated and qualified under CLIA to perform high-complexity testing. This test is used for clinical purposes and should not be regarded as investigational or for research. *Approximate copies of target nucleic acid per &micro;L (Low: <2,500 copies/&micro;L, Moderate: 2,500-50,000 copies/&micro;L, High: >50,000 copies/&micro;L) National Infectious Disease Consensus Data Potentially effective oral antibiotics, based on presence of detected microbes, antimicrobial resistance genes, and national antimicrobial sensitivity data (see Summary Antibiogram). Acinetobacter baumannii 0.000 19.961 - 24.689 p pm Acinetobacter baumannii Not Detected 19.961 - 24.689 p pm Citrobacter freundii 0.000 23.000 - 31.881 ppm Citrobacter freundii Not Detected 23.000 - 31.881 ppm Enterobacter aerogenes, cloacae 0.000 23.000 - 31.535 ppm Enterobacter aerogenes, cloacae Not Detected 23.000 - 31.535 ppm Enterococcus faecalis, faecium 0.000 26.000 - 31.575 ppm Enterococcus faecalis, faecium Not Detected 26.000 - 31.575 ppm Escherichia coli 0.000 23.000 - 28.500 ppm Escherichia coli Not Detected 23.000 - 28.500 ppm Klebsiella pneumoniae, oxytoca 0.000 23.000 - 30.500 ppm Klebsiella pneumoniae, oxytoca Not Detected 23.000 - 30.500 ppm Morganella morganii 0.000 19.961 - 24.689 ppm Morganella morganii Not Detected 19.961 - 24.689 ppm Proteus mirabilis, vulgaris 0.000 23.000 - 28.500 ppm Proteus mirabilis, vulgaris Not Detected 23.000 - 28.500 ppm Pseudomonas aeruginosa 0.000 23.000 - 28.500 pp m Pseudomonas aeruginosa Not Detected 23.000 - 28.500 pp m Staphylococcus aureus 0.000 26.000 - 30.902 ppm Staphylococcus aureus Not Detected 26.000 - 30.902 ppm Streptococcus agalactiae (Group B Strep) 0.000 26.000 - 32.222 ppm Streptococcus agalactiae (Group B Strep) Not Detected 26.000 - 32.222 ppm Verena albicans, parapsilosis, tropicalis 0.000 19.961 - 30.770 ppm Verena albicans, parapsilosis, tropicalis Not Detected 19.961 - 30.770 ppm Verena glabrata (Nakaseomyces glabratus) 0.000 23.000 - 32.138 ppm Verena glabrata (Nakaseomyces glabratus) Not Detected 23.000 - 32.138 ppm Verena krusei (Pichia kudriavzevii) 0.000 23.000 - 32.271 ppm Verena krusei (Pichia kudriavzevii) Not Detected 23.000 - 32.271 ppm Serratia marcescens 0.000 23.000 - 31.204 ppm Serratia marcescens Not Detected 23.000 - 31.204 ppm Streptococcus pyogenes (Group A strep) 0.000 19.961 - 24.689 ppm Streptococcus pyogenes (Group A strep) Not Detected 19.961 - 24.689 ppm Staphylococcus saprophyticus 0.000 19.961 - 24.689 ppm Staphylococcus saprophyticus Not Detected 19.961 - 24.689 ppm Staphylococcus epidermidis, haemolyticus, lugdunensis 0.000 19.961 - 24.689 ppm Staphylococcus epidermidis, haemolyticus, lugdunensis Not Detected 19.961 - 24.689 ppm Urinalysis, Routine Reviewed date:08/11/2024 03:14:13 PM Interpretation: Performing Lab: Notes/Report: Urine-Color yellow Appearance slightly cloudy Glucose - Bilirubin - Ketones - Specific [place] 1.010 Occult Blood - pH 6.0 Urine Protein - Urobilinogen,Semi-Qn - Nitrite, Urine + WBC Esterase 3+ CULTURE, URINE, ROUTINE (395 ) Reviewed date:08/14/2024 10:01:05 AM Interpretation: Performing Lab:[facility], [id number] [facility], [id number] Manas Correa MD Notes/Report: NON-FASTING CULTURE, URINE, ROUTINE SEE NOTE CULTURE, URINE, ROUTINE Micro Number: [id number] Test Status: Final Specimen Source: Not given Specimen Quality: Adequate Result: Greater than 100,000 CFU/mL of Klebsiella pneumoniae Comment: No collection date was provided. The specimen is generally defined as stable up to 48 hours. The result(s) need(s) to be interpreted cautiously. Clinicopathologic correlation is required. Repeat testing is recommended as clinically indicated. Customer Service is available with questions or comments based on your area of interest: [facility] ([phone]) K.pneumoniae INT MARIAN AMOX/CLAVULANATE S <=2 AMP/SULBACTAM S 8 CEFAZOLIN NR <=4 2 CEFEPIME S <=0.12 CEFTAZIDIME S <=1 CEFTRIAXONE S <=0.25 CIPROFLOXACIN S <=0.06 GENTAMICIN S <=1 IMIPENEM S <=0.25 LEVOFLOXACIN S <=0.12 MEROPENEM S <=0.25 NITROFURANTOIN R 128 PIP/TAZOBACTAM S <=4 TRIMETHOPRIM/SULFA S <=20 S = Susceptible I = Intermediate R = Resistant NS = Not susceptible SDD = Susceptible Dose Dependent * = Not Tested NR = Not Reported NN = See Therapy Comments THERAPY COMMENTS Note 1: For infections other than uncomplicated UTI caused by E. coli, K. pneumoniae or P. mirabilis: Cefazolin is resistant if MARIAN > or = 8 mcg/mL. (Distinguishing susceptible versus intermediate for isolates with MARIAN < or = 4 mcg/mL requires additional testing.) Note 2: For uncomplicated UTI caused by E. coli, K. pneumoniae or P. mirabilis: Cefazolin is susceptible if MARIAN <32 mcg/mL and predicts susceptible to the oral agents cefaclor, cefdinir, cefpodoxime, cefprozil, cefuroxime, cephalexin and loracarbef. NO COLLECTION DATE RECEIVED. WE HAVE USED THE DATE THE SPECIMEN WAS RECEIVED BY THIS LABORATORY THE COLLECTION DATE. IF THIS IS INCORRECT, PLEASE CONTACT CLIENT SERVICES. PHONE NUMBER: [phone] Reason For Referral No Information Medications Medication SIG (Take, Route, Fr equency, Duration) Notes Start Date End Date Status Prebiotic Product Ac tive Probiotic Active Social History Tobacco Use: Social History Observation Description Date Details (start date - stop date) Former Smoker NA - NA Tobacco Control (Standard) Question Answer Notes Tobacco use: Former smoker How long has it been since you last smoked? 1-5 years Section Notes: former smoker stopped at age 19 former smoker ages 12 - 19 Problems Problem Type SNOMED Code ICD Code Onset Dates Problem Status W/U Status Risk Notes Problem Nephrolithiasis (21383658) Nephrolithiasis (N20.0) Active confirmed Problem Urge incontinence of urine (41926687) Urge incontinence of urine (N39.41) Active confirmed Vital Signs Heart Rate 80 /min 09/10/2024 Height-cm 165.1 cm 09/10/2024 Blood pressure diastolic 78 mm Hg 09/10/2024 Weight-kg 106.14 kg 09/10/2024 Height 65 in 09/10/2024 Blood pressure systolic 129 mm Hg 09/10/2024 Weight 234 lbs 09/10/2024 BMI 38.94 kg/m2 09/10/2024 Procedures Procedure Date Ordered Date Performed Result Body Sit e Bladder Scan 08/11/2024 08/11/2024 N/A Encounters Encounter Location Date Provider Diagnosis [facility] [address] [address] 08/11/2024 PRIYA GRAFF Acute UTI N39.0 ; Dysuria R30.0 ; Urinary frequency R35.0 ; Urge incontinence of urine N39.41 ; Nephrolithiasis N20.0 and History of drug use F19.91 [facility] [address] [address] 09/10/2024 PRIYA GRAFF Dysuria R30.0 ; Rece nt urinary tract infection Z87.440 ; Nocturia R35.1 ; Urinary frequency R35.0 ; Urinary urgency R39.15 ; Nephrolithiasis N20.0 and History of drug use F19.91 [facility] [address] [address] 07/21/2024 DARLIN BENOIT Assessments Encounter Date Diagnosis (ICD Code) Assessment Notes Treatment Notes Treatment Clinical Notes Section Notes 09/10/2024 Dysuria (ICD-10 - R30.0) 09/10/2024 Recent urinary tract infection (ICD-10 - Z87.440) 08/11/2024 Dysuria (ICD-10 - R30.0) 08/11/2024 Acute UTI (ICD-10 - N39.0) 08/11/2024 Urinary frequency (ICD-10 - R35.0) 09/10/2024 Nocturia (ICD-10 - R35.1) 09/10/2024 Urinary frequency (ICD-10 - R35.0) 08/11/2024 Urge incontinence of urine (ICD-10 - N39.41) 09/10/2024 Urinary urgency (ICD-10 - R39.15) 08/11/2024 Nephrolithiasis (ICD-10 - N20.0) 09/10/2024 Nephrolithiasis (ICD-10 - N20.0) 08/11/2024 History of drug use (ICD-10 - F19.91) 09/10/2024 History of drug use (ICD-10 - F19.91) 08/11/2024 Other UA appears infected, she is emptying well. Start Cipro. Send urine for culture. Obtain new KUB to assess for stones. Start Oxybutynin 5mg ER for OAB. Administration and s/e profile reviewed. RTC in 4 weeks with UA/PVR and KUB. 09/10/2024 Other UA still cloudy with leukocytes. Send for PCR to rule out low growth bacteria remaining. Call with results and treat as indicated. Increase Oxybutynin to 10mg. Plan Of Treatment Pending Test Test Name Order Date KUB, X-Ray: Abdomen, Kidney, Urete r, bladder 08/12/2024 Insurance Providers Payer Name Payer Address Payer Phone Subscriber Number Group Number Insured Name Patient Relationship to Insured Coverage Start Date Coverage End Date [facility] [address] [place], [place] [id number] Seu Urbina Self - patient is the insured 4 Medical (General) History Medical History History ICD Code anxiety depression low thyroid back pain burning with urination kidney stones waking up 2x a night to urinate urinary frequency UTI Surgical History Surgery Date(Month/Year) 2 c- sections 2 throat surgeries tonsilectomy IUD removed Hospitalization History Reason Date(Month/Year) see sx
[2025-04-16] MEDS: orphenadrine 30 mg/mL Inj 2 mL 60 MG IM (22:50)
--- NOTE | 2025-04-16 23:00 | ED_ITS ---
HPI - Headache General: Chief Complaint: Headache Stated Complaint: Severe headache,N/V,blurred vision Time Seen by Provider: 04/16/25 22:30 History of Present Illness: Patient is a 24-year-old female that presents to the emergency room with headache x 1 day. Patient stated that her sinuses were giving her issues, and she has been taking Afrin for the last 2 weeks. She then read that she is only supposed to take this for 3 days, or she can have these refractory headaches. She states that she has had 2 other headaches like this in the past, however it was when she was , and another time. She describes this more as of a global, blurry vision, with photophobia, and phonophobia. Unfortunately, she states she was not aware of the Afrin issue with causing headaches until she looked it up on [employer]. Associated symptoms: Deny chest pain, fever(s), nausea, rash or vomiting Related Data Previous Rx's ?Medication ?Instructions ?Recorded omeprazole 40 mg capsule,delayed 40 mg PO DAILY #60 ca ps 07/21/24 release ondansetron 4 mg disintegrating 4 mg PO Q8H PRN nausea and 07/21/24 tablet vomiting #30 tabs Allergies Allergy/AdvReac Type Severity Reaction Status Date / Time escitalopram (From Lexapro) Allergy suicidal Verified 07/21/24 11:08 ideation Review of Systems 2 General: Reports: 10 or more systems reviewed and unremarkable except in HPI and below Const: Denies: fever(s) Eyes: Denies: change in vision ENMT: Denies: throat pain Card: Denies: chest pain, palpitations or dyspnea on exertion Resp: Denies: dyspnea, productive cough, non-productive cough or wheezing GI: Denies: abdominal pain, nausea, vomiting, diarrhea or constipation : Reports: dysuria, urinary frequency and urinary urgency Musc: Denies: neck pain, back pain or joint pain Skin/Breast: Denies: rash or new lesions Neuro: Reports: headache(s); Denies: numbness in extremities, weakness in extremities or sensory changes Psych: Denies: anxiety or depression PFS ED PFSH: Medical History (Updated 04/16/25 @ 23:04 by TONG Newton) delivery delivered Obesity (BMI 35.0-39.9 without comorbidity) Surgical History Hx of tonsillectomy S/P repeat low transverse History of delivery Family History Grandmother Breast cancer Diabetes Denies family history of Colon cancer Ovarian cancer Heart disease Hypertension Uterine cancer Thyroid disease Stroke Social History Smoking and tobacco/nicotine status: former use of tobacco/nicotine Alcohol intake: former Substance/Drug Use: former Former substance use details: alternative products Physical Exam Const: COMMON NORMALS: patient oriented x3 HENMT: COMMON NORMALS: normocephalic, atraumatic, hearing grossly normal bilaterally, external ears normal and TM's normal bilaterally HEAD & SCALP: normocephalic and atraumatic EXTERNAL EAR: Yes external ears normal TYMPANIC MEMBRANE: TM's normal bilaterally Neck/C-Spine: COMMON NORMALS: no JVD Resp: COMMON NORMALS: normal respiratory effort, No retractions, No use of accessory muscles and clear to auscultation bilaterally AUSCULTATION: clear to auscultation bilaterally Cardio: COMMON NORMALS: no JVD, regular rate, regular rhythm, S1 normal heart sound present, S2 normal heart sound present, No gallops present (Cardio), No clicks present (Cardio), No murmurs present (Cardio), No rub (Cardio) and Peripheral pulses 2+ throughout RATE: regular rate RHYTHM: regular rhythm HEART SOUNDS: S1 normal heart sound present and S2 normal heart sound present PERIPHERAL PULSES: Peripheral pulses 2+ throughout GI: COMMON NORMALS: Normal to inspection, nondistended, normoactive bowel sounds present, Soft to palpation, non-tender and No hepatosplenomegaly present PALPATION: Yes Soft to palpation and Yes No hepatosplenomegaly present : COMMON NORMALS: Yes no CVA tenderness BLADDER/KIDNEY EXAM: Yes no CVA tenderness Back/Pelvis: COMMON NORMALS: no CVA tenderness and thoracic and lumbar spine normal to inspection Extremity: COMMON NORMALS: normal to inspection, full ROM and capillary refill normal Neuro: COMMON NORMALS: patient oriented x3, CN's II-XII intact bilaterally and moves all extremities Course Reevaluation(s): Reevaluation #1: 1111 pm: Patient notes a lot better. Patient states she would like to go home. Vital Signs: Vital signs: Vital Signs Temperature 98.1 F 04/16/25 22:11 Pulse Rate 98 04/16/25 22:11 Respiratory Rate 20 H 04/16/25 22:11 Blood Pressure 137/92 04/16/25 22:11 Pulse Oximetry 96 04/16/25 22:11 Oxygen Delivery Me thod Room Air 04/16/25 22:11 MDM - Headache Medical Decision Making Patient is a 24-year-old female that presents to the emergency room due to ongoing headache, warm cheeks, blurry vision. She believes this is secondary to her Afrin use. This does appear consistent. Will give her headache cocktail of Compazine, Norflex, Toradol, and dexamethasone. I have also instructed her to obtain Astepro, and Flonase [id number] to help with her sinus issues In the future. Patient is doing a lot better. She is ready to be discharged home. Will go over discharge instructions with patient directly. Medical Records I reviewed the patient's medical records. Lab Data I reviewed the patient's lab results. No radiology studies performed this visit Discharge Plan Discharge Patient Disposition: Home Clinical Impression: Migraine Qualifiers: Migraine type: migraine (< 15 days per month) with aura Status migrainosus presence: without status migrainosus Intractability: not intractable Qualified Code(s): G43.109 - Migraine with aura, not intractable, without status migrainosus Condition: Stable Prescriptions: No Action omeprazole 40 mg capsule,delayed release(DR/EC) 40 mg PO DAILY Qty: 60 1RF Rx Instructions: daily x 2 months then as needed ondansetron 4 mg tablet,disintegrating 4 mg PO Q8H PRN (Reason: nausea and vomiting) Qty: 30 1RF Discharge Orders: Discharge ED (Routine); Ordered 04/16/25 Ordered By: Zulma Barron Referrals: González Panchal MD [Primary Care Provider, Family Practice] Discharge Diet: Usual diet Discharge Activity: Resume usual activity Patient Instructions: Migraine Headache (ED), Patient Portal & Nancy Instructions Activity Restrictions/Additional Instructions: - We discussed [id number] medications in the future for your sinus issues and runny nose called Astepro: This is a powerful antihistamine you use nasally. Flonase: This is a powerful anti-inflammatory use nasally. Both of these are used 2 sprays each nose twice daily. - Tylenol and ibuprofen for headache - Return to the ED if you have ongoing migraine that will not stop, Fever greater than 100.4 ?F Thank you for choosing [facility] for your healthcare needs today. You have been screened and evaluated and felt safe for discharge. Health conditions do change or evolve sometimes and as such it is important that you follow up with your Primary Doctor to be re checked, 3-5 days is a general good time frame for follow up. You are always welcome to return to the ED for re assessment if your symptoms are worsening or you have new concerns Print Language: Tajik Coding Level of Care Code ED Airplane Patrol Pilot for Alonso Trevino
== END 2025-04-16 23:15 | disposition home or self-care (01) ==
PROVIDERS: Emergency Provider Physician Assistant; PCP Family Medicine
DX: G43.109 Migraine with aura, not intractable, without status migrainosus (principal); Z87.891 Personal history of nicotine dependence
CPT/HCPCS: 96372; 99284; J0780; J1100; J1885; J2360